=== PATIENT | female | born 1985 | race American Indian/Alaskan Native ===

== ENCOUNTER 2022-01-22 09:17 | Emergency (ER) | payer SELFPAY ==
[2022-01-22 11:02] LABS: Bacteria,Urine 1+ /HPF (Negative); Color,Urine Yellow (Yellow); Mucus,Urine FEW /HPF
[2022-01-22 11:12] LABS: HCG Qualitative,Urine Negative (Negative)
--- NOTE | 2022-01-22 14:07 | Emergency Department Report ---
ED Female HPI - General Chief complaint: Urogenital-Female Stated complaint: VAGINAL IRRITATION Time Seen by Provider: 01/22/22 13:05 Source: patient Mode of arrival: Ambulatory Limitations: No Limitations - History of Present Illness Initial comments: 36-year-old black female with no past medical history presents to the emergency department for evaluation of 2-week history of vaginal discharge. She states that 2 weeks ago she thought she had a yeast infection so she used a 3-day course of Monistat which improved the discharge some but patient states that she still had significant itching and over the past few days she has had increased discharge. She denies fever, dysuria, abdominal pain. She states that she has been having unprotected sex with a new partner. MD Complaint: vaginal discharge -: Gradual, week(s) (2) Severity scale (0 -10): 0 Are you Now?: No Associated Symptoms: vaginal discharge, shortness of breath. denies: vaginal bleeding, abdominal pain, nausea/vomiting, fever/chills, headaches, loss of appetite, dysuria, hematuria, rash - Related Data Sexually active: Yes Previous Rx's Medication Instructions Recorded Last Taken Type DOXYCYCLINE Hyclate [Vibramycin] 100 mg PO Q12HR 7 Days #14 capsule 01/22/22 Unknown Rx metroNIDAZOLE [Flagyl] 500 mg PO Q12HR 7 Days #14 tab 01/22/22 Unknown Rx Allergies Allergy/AdvReac Type Severity Reaction Status Date / Time No Known Allergies Allergy Verified 01/22/22 09:24 ED Review of Systems ROS: Stated complaint: VAGINAL IRRITATION Other details as noted in HPI Comment: All other systems reviewed and negative Constitutional: denies: chills, fever Respiratory: denies: shortness of breath Cardiovascular: denies: chest pain, palpitations Gastrointestinal: denies: abdominal pain, nausea, vomiting, diarrhea, hematemesis, melena, hematochezia Genitourinary: denies: urgency, dysuria Musculoskeletal: denies: back pain Neurological: denies: headache ED Past Medical Hx - Past Medical History Previous Medical History?: No - Surgical History Past Surgical History?: No - Social History Smoking Status: Never Smoker - Medications Home Medications: Home Medications Medication Instructions Recorded Confirmed Last Taken Type DOXYCYCLINE Hyclate [Vibramycin] 100 mg PO Q12HR 7 Days #14 capsule 01/22/22 Unknown Rx metroNIDAZOLE [Flagyl] 500 mg PO Q12HR 7 Days #14 tab 01/22/22 Unknown Rx ED Physical Exam - General Limitations: No Limitations General appearance: alert, in no apparent distress - Head Head exam: Present: atraumatic, normocephalic - Eye Eye exam: Present: normal appearance. Absent: conjunctival injection - Neck Neck exam: Present: normal inspection - Respiratory Respiratory exam: Absent: respiratory distress - Cardiovascular Cardiovascular Exam: Present: tachycardia - GI/Abdominal GI/Abdominal exam: Absent: distended, tenderness - External exam: Present: normal external exam Speculum exam: Present: vaginal discharge (Copious amounts of thin yellow discolored discharge), cervical discharge. Absent: vaginal bleeding Bi-manual exam: Present: other (Cervix not friable). Absent: cervical motion tendernes, adnexal tenderness, uterine tenderness - Extremities Exam Extremities exam: Present: normal inspection - Back Exam Back exam: Present: normal inspection. Absent: CVA tenderness (R), CVA tenderness (L) - Neurological Exam Neurological exam: Present: alert, oriented X3 - Psychiatric Psychiatric exam: Present: normal affect, normal mood - Skin Skin exam: Present: warm, dry, intact, normal color ED Course Vital Signs 01/22/22 09:20 Temperature 98.3 F Pulse Rate 112 H Respiratory 14 Rate Blood Pressure 112/74 O2 Sat by Pulse 100 Oximetry ED Medical Decision Making - Medical Decision Making 36-year-old black female with no past medical history presents to the emergency department for evaluation of 2-week history of vaginal discharge. She states that 2 weeks ago she thought she had a yeast infection so she used a 3-day c ourse of Monistat which improved the discharge some but patient states that she still had significant itching and over the past few days she has had increased discharge. She denies fever, dysuria, abdominal pain. She states that she has been having unprotected sex with a new partner. Wet prep positive for trichomonas and BV. Patient will be discharged home with 7-day course of Flagyl and advised to follow-up and [facility] for further testing and return to the emergency department as needed. After receiving results of wet prep, patient requested to be empirically treated for gonorrhea and chlamydia. Patient given Rocephin 500 mg IM and discharged home with 7-day course of doxycycline. She verbalizes understanding of and agreement with plan of care. Critical care attestation.: If time is entered above; I have spent that time in minutes in the direct care of this critically ill patient, excluding procedure time. ED Disposition Clinical Impression: Trichomonas vaginitis, Bacterial vaginosis Disposition: HOME / SELF CARE / HOMELESS Is pt being admited?: No Does the pt Need Aspirin: No Condition: Stable Instructions: Bacterial Vaginosis, [id number], Trichomoniasis, Bacterial Vaginosis (ED) Additional Instructions: Take medications as prescribed. Consider follow-up with [facility] or primary care provider for further evaluation and testing. Return to the emergency department as needed. Prescriptions: metroNIDAZOLE [Flagyl] 500 mg PO Q12HR 7 Days #14 tab DOXYCYCLINE Hyclate [Vibramycin] 100 mg PO Q12HR 7 Days #14 capsule Referrals: [facility] [Outside] - 3-5 Days CLAUDIA THURMAN MD [Staff Physician] - 3-5 Days Forms: STI Treatment and Prevention Time of Disposition: 14:10
[2022-01-22] MEDS ORDERED: LIDOCAINE-MPF (1%) 10 MG/1 ML VIAL 5 ML INFILTRATI ONE (14:12)
[2022-01-22 14:45] VITALS: BP 121/69
== END 2022-01-22 14:44 | disposition home or self-care (01) ==
LOC: ED 09:17
DX: A59.01 Trichomonal vulvovaginitis (principal); N76.0 Acute vaginitis; B96.89 Other specified bacterial agents as the cause of diseases classified elsewhere
CPT/HCPCS: 81001; 81025; 87086; 87210; 96372; 99284; J0696; J3490; 99283